=== PATIENT | male | born 1945 | race Caucasian/White ===

== ENCOUNTER 2021-07-09 05:23 | Inpatient (IN) | payer OTHER ==
[2021-07-02 16:30] LABS: BASOPHILS % (AUTO) 0.6 % (0-1); EOSINOPHILS # (AUTO) 0.2 X10'3 (0-0.9); EOSINOPHILS % (AUTO) 2.8 % (0-6); LYMPHOCYTES # (AUTO) 1.9 X10'3 (1.1-4.8); LYMPHOCYTES % (AUTO) 25.3 % (21-51); MEAN CORPUSCULAR HEMOGLOBIN 28.9 PG (27.0-31.0); MEAN CORPUSCULAR HGB CONC 33.9 g/dL (33.0-36.5); MEAN CORPUSCULAR VOLUME 85.4 FL (78-98); MEAN PLATELET VOLUME 7.6 FL (7.4-10.4); MONOCYTES # (AUTO) 0.6 X10'3 (0-0.9); MONOCYTES % (AUTO) 7.4 % (2-12); NEUTROPHILS # (AUTO) 4.8 X10'3 (1.8-7.7); NEUTROPHILS % (AUTO) 63.9 % (42-75); PRE OP HEMATOCRIT 43.8 % (42.0-52.0); PRE OP HEMOGLOBIN 14.8 g/dL (14.0-17.9); PRE OP PLATELET COUNT 305 X10'3 (140-440); RED BLOOD COUNT 5.13 X10'6 (4.70-6.10); RED CELL DISTRIBUTION WIDTH 12.8 % (11.5-14.5)
[2021-07-02 16:46] LABS: ALBUMIN 3.6 G/DL (3.4-5.0); ALKALINE PHOSPHATASE 58 IU/L (46-116); BLOOD UREA NITROGEN 22 MG/DL (7-18); BUN/CREATININE RATIO 20.2 (5.4-32.0); CALCIUM 9.1 MG/DL (8.5-10.1); CHLORIDE 105 MMOL/L (99-107); CREATININE 1.09 MG/DL (0.60-1.10); PRE OP ALT 34 U/L (30-65); PRE OP ANION GAP 13 (8-16); PRE OP AST 23 U/L (10-37); PRE OP BILIRUB, TOTAL 0.5 MG/DL (0.0-1.0); PRE OP GLUCOSE 94 MG/DL (70-104); PRE OP POTASSIUM 3.6 MMOL/L (3.4-5.1); PRE OP SODIUM 143 MMOL/L (135-145); TOTAL CARBON DIOXIDE 25.3 MMOL/L (24-32); TOTAL PROTEIN 7.3 G/DL (6.4-8.2); eGFR 66 ML/MIN
[~2021-07-09] VITALS: Ht 172.7 cm; Wt 79.4 kg
[2021-07-09] VITALS (17 sets, daily range): BP systolic 119–160; BP diastolic 49–83
[~2021-07-09 05:23] MED LIST: ACET650T24 PO; LISI20TA28 PO; PRAV40TA3 PO; ZINC50TA67 PO; ringers solution, lacted 1,000 ML IV SCH; vancomycin/NS 1 GM in NS 250 ML IV ONE
[2021-07-09] MEDS ORDERED: famotidine 20mg tablet PO ONE (05:30)
[2021-07-09] MEDS ORDERED: cefazolin/dext.iso 2gm/50ml IV ONE (05:30)
[2021-07-09] MEDS ORDERED: tranexamic acid 650mg tablet PO ONE (05:30)
[2021-07-09] MEDS ORDERED: LIDOcaine 1% (10mg/ml) 2ml vial ONE (05:47)
--- NOTE | 2021-07-09 06:30 | NUR ---
PT SHOWERED AND USED NASAL OINTMENT PER DECOLONIZATION PROTOCOL. HAND/FINGERS TO RIGHT SHOULDER HAVE GOOD CSM. TOTAL JOINT BOOKLET READ BY PT.
[2021-07-09] MEDS ORDERED: ROPIVAcaine 0.5% (5mg/ml) 30ml vial ONE ×2 (07:41→11:33)
[2021-07-09] MEDS ORDERED: ketorolac trometh. 30mg/ml inj. ONE (07:41)
[2021-07-09] MEDS ORDERED: FENTANYL CITRATE/PF 50 MCG/1 ML VIAL ONE ×3 (09:53→11:34)
[2021-07-09] MEDS ORDERED: midazolam 1 mg/ML 2ml injection ONE (09:53)
[2021-07-09] MEDS ORDERED: ondansetron/PF 4mg/2ml inj IV PRN ×2 (11:05→11:55)
[2021-07-09] MEDS ORDERED: ringers solution, lacted 1,000 ML IV SCH (11:05)
[2021-07-09] MEDS ORDERED: morphine 2 MG/ML inj. syringe IV PRN (11:05)
[2021-07-09] MEDS ORDERED: HYDROmorphone/PF 0.2 MG/ML SYRINGE IV PRN ×2 (11:05)
[2021-07-09] MEDS ORDERED: ROPIVAcaine 0.2% (10 MG/5 ML) BOLUS INJECTION INTERSCALE PRN (11:05)
[2021-07-09] MEDS ORDERED: ROPIVAcaine 0.2%/PF PUMP/bolus 545 ML INTERSCALE SCH (11:05)
[2021-07-09] MEDS ORDERED: acetaminophen 325mg rectal suppository RC ONE (11:23)
[2021-07-09] MEDS ORDERED: acetaminophen 1,000mg/100ml IV 100 ML IV ONE (11:23)
[2021-07-09] MEDS ORDERED: ePHEDrine 50MG/ML INJ. ONE (11:33)
[2021-07-09] MEDS ORDERED: dexamethasone sod phosphate 4mg/ml inj. ONE (11:33)
[2021-07-09] MEDS ORDERED: ondansetron/PF 4mg/2ml inj ONE (11:33)
[2021-07-09] MEDS ORDERED: propofol inj 20 ML IV ONE (11:33)
--- NOTE | 2021-07-09 11:53 | NUR ---
Received from OR via [facility] , accompanied by Anesthesiologist JODIE and report given by Anesthesiolgist. PATIENT WITH 10L MASK ON WITH 98% SATURATIONS. VSS. RIGHT SHOULDER DRESSING IS CDI AND WITH POWDER PACK PRESENT. PATIENT WITH + RADIAL PULSE PRESENT. FINGERS PWD. SCDS DONNED UPON ARRIVAL. NERVE BLOCK SITE TO LEFT SIDE OF NECK PRESENT. WILL CONNECT ON Q ONCE RECIEVED BY PHARMACY. Addendum: 07/09/21 at 1200 by Kimani Ratliff RN, RN Amended: Links added.
[2021-07-09] MEDS ORDERED: HYDROmorphone 1 mg/ml syringe IV PRN (11:55)
[2021-07-09] MEDS ORDERED: HYDROcodone/acetaminophen 10/325mg tab PO PRN (11:55)
[2021-07-09] MEDS ORDERED: HYDROmorphone inj. 0.5 MG/0.5 ML DISP.SYRIN IV PRN (11:55)
[2021-07-09] MEDS ORDERED: bisacodyl 10mg suppository rectal RC PRN (11:55)
[2021-07-09] MEDS ORDERED: oxyCODONE IR 5mg (immed. release) tablet PO PRN ×2 (11:55)
[2021-07-09] MEDS ORDERED: diphenhydrAMINE 25mg capsule PO PRN ×2 (11:55)
[2021-07-09] MEDS ORDERED: acetaminophen 325mg tablet PO PRN (11:55)
[2021-07-09] MEDS ORDERED: magnesium hydroxide 30ml (MOM) UD suspension PO PRN (11:55)
--- NOTE | 2021-07-09 12:35 | NUR ---
REC'D REPORT FROM ANI OLIVO IN RECOVERY. WILL AWAIT PTS ARRIVAL TO THE FLOOR.
--- NOTE | 2021-07-09 12:45 | NUR ---
PT ARRIVED TO THE FLOOR IN STABLE CONDITION. WILL CONTINUE TO MONITOR
--- NOTE | 2021-07-09 12:56 | NUR ---
PATIENT HAS MET ALL CRITERIA FOR TRANSFER TO THE SURGICAL FLOOR. VSS. DRESSINGS INTACT. BED LOW, CALL LIGHT PRESENT AND 2 RAILS UP. RN PRESENT TO ACCEPT CARE OF PATIENT AND REPORT HAS BEEN CALLED. ALL QUESTIONS ANSWERED TO ACCEPTING RN. CALLED AND NOTIFIED OF ROOM NUMBER. 2 BAGS OF BELONGINGS SENT WITH PATIENT. RN PRESENT TO ACCEPT CARE OF PATIENT. DENIES PAIN. BLOCK STILL INTACT. VSS. Addendum: 07/09/21 at 1306 by Kimani Chaves - ANI RN Amended: Links added.
[2021-07-09] MEDS: acetaminophen 325mg tablet PO SCH ×2 (13:34→19:41)
[2021-07-09] MEDS: ceFAZolin/D5W- 1GM premix 50 ML IV SCH (17:20)
--- NOTE | 2021-07-09 18:16 | NUR ---
Problems reprioritized. Patient report given, questions answered & plan of care reviewed with ANI CARRASCO.
[2021-07-09] MEDS: potassium cl 20mEq in 1/2 NS 1,000 ML IV SCH (19:40)
[2021-07-09] MEDS ORDERED: vancomycin/NS 1 GM ADD-VANTAGE 250 ML IV SCH (20:00)
[2021-07-09] MEDS ORDERED: sennosides 8.6mg tablet PO SCH (21:00)
[2021-07-09] MEDS ORDERED: non-formulary drug (Acetaminophen 1 TAB) PO SCH (21:00)
[2021-07-09] MEDS ORDERED: lisinopril 20mg tablet PO SCH (21:00)
[2021-07-09] MEDS ORDERED: pravastatin 40mg tablet PO SCH (21:00)
[2021-07-10] MEDS: ceFAZolin/D5W- 1GM premix 50 ML IV SCH (00:50)
[2021-07-10] MEDS: acetaminophen 325mg tablet PO SCH ×2 (02:00→07:28)
[2021-07-10] MEDS: potassium cl 20mEq in 1/2 NS 1,000 ML IV SCH (03:55)
--- NOTE | 2021-07-10 06:35 | NUR ---
Patient in room [facility]. I have received report from Madhuri LAW and had the opportunity to ask questions and assume patient care.
[2021-07-10 06:40] LABS: BASOPHILS % (AUTO) 0 % (0-1); EOSINOPHILS % (AUTO) 0 % (0-6); HEMOGLOBIN 12.8 g/dl (14.0-17.9); LYMPHOCYTES % (AUTO) 9.7 % (21-51); MEAN CORPUSCULAR HEMOGLOBIN 28.7 PG (27.0-31.0); MEAN CORPUSCULAR HGB CONC 33.6 g/dL (33.0-36.5); MEAN CORPUSCULAR VOLUME 85.4 FL (78-98); MEAN PLATELET VOLUME 7.5 FL (7.4-10.4); MONOCYTES # (AUTO) 0.9 X10'3 (0-0.9); MONOCYTES % (AUTO) 8.7 % (2-12); NEUTROPHILS # (AUTO) 8.7 X10'3 (1.8-7.7); NEUTROPHILS % (AUTO) 81.6 % (42-75); PLATELET COUNT 276 X10'3 (140-440); RED BLOOD COUNT 4.45 X10'6 (4.70-6.10); RED CELL DISTRIBUTION WIDTH 13.1 % (11.5-14.5); WHITE BLOOD COUNT 10.7 X10'3 (4.5-11.0)
[2021-07-10 07:10] LABS: ANION GAP 8 (8-16); CHLORIDE 109 MMOL/L (99-107); POTASSIUM 4.4 MMOL/L (3.5-5.1); SODIUM 140 MMOL/L (135-145); TOTAL CARBON DIOXIDE 22.9 MMOL/L (24-32)
[2021-07-10 07:29] VITALS: BP 131/69
[2021-07-10] MEDS ORDERED: non-formulary drug (Zinc 1 TAB) PO SCH (08:00)
[2021-07-10] MEDS ORDERED: aspirin 325mg tablet PO SCH (08:30)
--- NOTE | 2021-07-10 11:41 | NUR ---
Donato Student nurse DC IV site successfully on 30 for discharge
--- NOTE | 2021-07-10 11:45 | NUR ---
Joint surgery consult: Pt s/p R shoulder surgery this admit. Pt seen by TOÑA for written/verbal high protein ed w/ RD contact information provided. TOÑA encouraged pt to contact dietitian's office if further questions/concerns. Addendum: 07/10/21 at [address] Amended: Links added.
--- NOTE | 2021-07-10 12:00 | NUR ---
VS stable, Spouse notified of discharge. Discharge instructions and care gone over with pt. Pt verbalized understanding. IV discontinued with no s/sx of complications, dressing applied per Donato, accounts payables clerk with this nurse and resource nurse Nina. Pt escorted out via wheelchair and staff to spouse.
[2021-07-11] MEDS ORDERED: acetaminophen 325mg tablet PO PRN (11:55)
== END 2021-07-10 11:55 | disposition home or self-care (01) | DRG 483 ==
LOC: PAS 05:23 → EDSTATUS 07:30 → SUR 3N 11:54
PROVIDERS: ADMIT Orthopaedic Surgery; ATTEND Orthopaedic Surgery
PROC: 0LS30ZZ Reposition Right Upper Arm Tendon, Open Approach (ICD-10-PCS; 2021-07-09)
PROC: 3E0T3BZ Introduction of Anesthetic Agent into Peripheral Nerves and Plexi, Percutaneous Approach (ICD-10-PCS; 2021-07-09)
PROC: 0RRJ00Z Replacement of Right Shoulder Joint with Reverse Ball and Socket Synthetic Substitute, Open Approach (ICD-10-PCS; principal; 2021-07-09 09:49)
DX: M19.011 Primary osteoarthritis, right shoulder (principal); M75.101 Unspecified rotator cuff tear or rupture of right shoulder, not specified as traumatic; M65.811 Other synovitis and tenosynovitis, right shoulder; Z20.822 Contact with and (suspected) exposure to COVID-19; I10 Essential (primary) hypertension; J45.909 Unspecified asthma, uncomplicated
CPT/HCPCS: 36415; 80051; 80053; 82948; 85025; 87081; 93005; 97110; 97161; 97530; 97535; A4565; A4618; A7000; C1776; G0378; J0131; J0690; J1100; J1885; J2250; J2405; J2704; J2795; J3010; J3370; J3480; J3490; J7120; U0003; U0005